=== PATIENT | male | born 1955 | race Caucasian/White ===

== ENCOUNTER 2017-02-20 16:03 | Emergency (ER) | payer OTHER ==
[~2017-02-20] VITALS: Ht 177.8 cm; Wt 83.9 kg
--- NOTE | 2017-02-20 16:55 | NUR ---
DR RAMIREZ AT THE BEDSIDE.
[2017-02-20] MEDS ORDERED: IV NORMAL SALINE 1000 ML BAG IV ONE (17:15)
[2017-02-20 17:58] LABS: CALCIUM 8.7 mg/dL (8.5-10.1); POTASSIUM 4.2 mmol/L (3.5-5.1)
[2017-02-20 17:59] LABS: BASOPHILS % (AUTO) 0.5 % (0.0-2.0); EOSINOPHILS # (AUTO) 0.1 K/uL (0.0-0.7); EOSINOPHILS % (AUTO) 0.9 % (0.0-7.0); HEMATOCRIT 49.7 % (40-50); LYMPHOCYTES # (AUTO) 2.4 K/uL (20.0-40.0); LYMPHOCYTES % (AUTO) 41.5 % (20.5-51.5); MEAN CORPUSCULAR HEMOGLOBIN 30.6 UUG (27.0-31.0); MEAN CORPUSCULAR HGB CONC 34 g/dL (32.0-37.0); MEAN CORPUSCULAR VOLUME 89.4 FL (82.0-92.0); MONOCYTES # (AUTO) 0.5 K/uL (2.0-10.0); MONOCYTES % (AUTO) 8.8 % (0.0-11.0); NEUTROPHILS # (AUTO) 2.8 K/uL (1.8-8.9); NEUTROPHILS % (AUTO) 48.3 % (38.5-71.5); PLATELET COUNT (AUTO) 140 K/UL (150-450); RED BLOOD CELL COUNT(AUTO) 5.56 MIL/UL (4.7-6.1); RED CELL DISTRIBUTION WIDTH 13.5 % (11.5-14.5); WHITE BLOOD COUNT (AUTO) 5.9 K/UL (4.0-11.2)
[2017-02-20 18:01] LABS: CREATININE 1.9 mg/dL (0.6-1.3)
[2017-02-20 18:04] LABS: ALBUMIN 3.3 g/dL (3.4-5.0); BILIRUBIN,DIRECT 0.1 mg/dL (0.0-0.2); BILIRUBIN,TOTAL 0.5 mg/dL (0.2-1.0); TOTAL PROTEIN, SERUM 7.4 g/dL (6.4-8.2)
--- NOTE | 2017-02-20 18:31 | NUR ---
IV removed. Catheter intact and site benign. Pressure and 4x4 gauze applied to site. No bleeding noted.
--- NOTE | 2017-02-20 18:35 | NUR ---
Patient discharged to home in stable conditon. Written and verbal after care instructions given. Patient verbalizes understanding of instructions.
[2017-02-20 18:36] VITALS: BP 144/90
== END 2017-02-20 18:36 | disposition home or self-care (01) ==
LOC: ER 16:06
DX: J06.9 Acute upper respiratory infection, unspecified (principal); N18.9 Chronic kidney disease, unspecified; F41.9 Anxiety disorder, unspecified; F17.200 Nicotine dependence, unspecified, uncomplicated
CPT/HCPCS: 36415; 71020; 80048; 80076; 85025; 96360; 99285; A4663; J7030

== ENCOUNTER 2018-03-16 07:53 | Emergency (ER) | payer OTHER ==
[~2018-03-16] VITALS: Ht 177.8 cm; Wt 83.9 kg
--- NOTE | 2018-03-16 08:28 | NUR ---
MD is at bedside evaluating the patient.
--- NOTE | 2018-03-16 08:43 | NUR ---
Iced water (1000ml) in a pitcher was provided for patient to drink.
[2018-03-16 08:47] LABS: BASOPHILS % (AUTO) 0.5 % (0.0-2.0); EOSINOPHILS % (AUTO) 0.5 % (0.0-7.0); HEMATOCRIT 50.9 % (36.7-47.1); HEMOGLOBIN 17.5 g/dL (12.5-16.3); LYMPHOCYTES # (AUTO) 1.8 K/uL (20.0-40.0); LYMPHOCYTES % (AUTO) 26.2 % (20.5-51.5); MEAN CORPUSCULAR HEMOGLOBIN 31.9 uug (23.8-33.4); MEAN CORPUSCULAR HGB CONC 34 g/dL (32.5-36.3); MEAN CORPUSCULAR VOLUME 92.8 fL (73.0-96.2); MONOCYTES # (AUTO) 0.5 K/uL (2.0-10.0); MONOCYTES % (AUTO) 7.4 % (0.0-11.0); NEUTROPHILS # (AUTO) 4.6 K/uL (1.8-8.9); NEUTROPHILS % (AUTO) 65.4 % (38.5-71.5); PLATELET COUNT (AUTO) 140 K/uL (152-348); RED BLOOD CELL COUNT(AUTO) 5.49 MIL/uL (4.06-5.63)
[2018-03-16 08:57] LABS: CREATININE 1.7 mg/dL (0.6-1.3); POTASSIUM 4.4 mmol/L (3.5-5.1)
[2018-03-16 09:12] LABS: BILIRUBIN,DIRECT 0.2 mg/dL (0.0-0.2); BILIRUBIN,TOTAL 0.6 mg/dL (0.2-1.0); TOTAL PROTEIN, SERUM 7.4 g/dL (6.4-8.2)
--- NOTE | 2018-03-16 09:36 | NUR ---
Patient discharged to home in stable conditon & steady gait. Written and verbal after care instructions given to patient w/ copies of all the tests results. Patient verbalizes understanding of instructions.
[2018-03-16 09:42] LABS: *BILIRUBIN,URIN NEGATIVE (NEGATIVE); *BLOOD, URINE NEGATIVE (NEGATIVE); *CLARITY,URINE CLEAR (CLEAR); *COLOR,URINE YELLOW (YELLOW); *KETONES,URINE NEGATIVE (NEGATIVE); *PROTEIN,URINE NEGATIVE (NEGATIVE); *UROBILINOGEN,URINE 0.2 E.U./dl (NORMAL); LEUKOCYTE ESTERASE ,URINE TRACE (NEGATIVE); NITRITE, URINE NEGATIVE (NEGATIVE); UGLUCOSE NEGATIVE (NEGATIVE)
[2018-03-16 09:47] LABS: BACTERIA,URINE NONE SEEN /HPF (NONE SEEN); RBC,URINE 0-3 /HPF (0-3); SQUAMOUS EPITHELIAL CELL,UR FEW /HPF (NONE SEEN); WBC,URINE 0-3 /HPF (0-3)
== END 2018-03-16 09:37 | disposition home or self-care (01) ==
LOC: ER 07:53
DX: R07.89 Other chest pain (principal); I10 Essential (primary) hypertension; E78.00 Pure hypercholesterolemia, unspecified; F17.210 Nicotine dependence, cigarettes, uncomplicated
CPT/HCPCS: 36415; 71045; 80048; 80076; 81001; 83690; 84484; 85025; 85730; 93005; 99285; A4663; 70030-TC; J7030

== ENCOUNTER 2018-10-13 15:58 | Emergency (ER) | payer OTHER ==
[~2018-10-13] VITALS: Ht 177.8 cm; Wt 83.9 kg
[2018-10-13] MEDS ORDERED: STATIN PO (16:16)
[2018-10-13] MEDS ORDERED: METO25TA6 PO (16:16)
[2018-10-13] MEDS ORDERED: OMEP40CA37 PO (16:16)
[2018-10-13] MEDS ORDERED: TAMS-3 PO (16:16)
[2018-10-13 16:36] LABS: BASOPHILS # (AUTO) 0.1 K/uL (0.0-8.0); BASOPHILS % (AUTO) 0.9 % (0.0-2.0); EOSINOPHILS % (AUTO) 0.6 % (0.0-7.0); HEMATOCRIT 48.2 % (36.7-47.1); HEMOGLOBIN 16.5 g/dL (12.5-16.3); LYMPHOCYTES # (AUTO) 2.2 K/uL (20.0-40.0); LYMPHOCYTES % (AUTO) 35.1 % (20.5-51.5); MEAN CORPUSCULAR HEMOGLOBIN 31.5 uug (23.8-33.4); MEAN CORPUSCULAR HGB CONC 34 g/dL (32.5-36.3); MEAN CORPUSCULAR VOLUME 91.8 fL (73.0-96.2); MONOCYTES # (AUTO) 0.4 K/uL (2.0-10.0); MONOCYTES % (AUTO) 7.1 % (0.0-11.0); NEUTROPHILS # (AUTO) 3.5 K/uL (1.8-8.9); NEUTROPHILS % (AUTO) 56.3 % (38.5-71.5); PLATELET COUNT (AUTO) 175 K/uL (152-348); RED BLOOD CELL COUNT(AUTO) 5.24 MIL/uL (4.06-5.63); WHITE BLOOD COUNT (AUTO) 6.3 K/uL (3.6-10.2)
[2018-10-13] MEDS ORDERED: ONDANSETRON 4 MG/2 ML VIAL ONE (16:43)
[2018-10-13] MEDS: IV NORMAL SALINE 1000 ML BAG IV ONE (16:44)
[2018-10-13] MEDS: ONDANSETRON 4 MG/2 ML VIAL IV ONE (16:45)
--- NOTE | 2018-10-13 16:47 | NUR ---
IV PLACED, ZOFRAN ADMIN, 1L 0.9NS BOLUS INFUSING, LABS DRAWN-SENT, EKG DONE. PT TO CT SCAN
--- NOTE | 2018-10-13 16:49 | NUR ---
RECORD DOCUMENTATION NOTE- I ZELDA MCMAHON RN, DOCUMENTED NOTES AND MED ADMINISTRATION UNDER LIV LYLES LVN BY MISTAKE. SAME COMPUTER.
[2018-10-13 16:50] LABS: BILIRUBIN,DIRECT 0.1 mg/dL (0.0-0.2); BILIRUBIN,TOTAL 0.5 mg/dL (0.2-1.0); CREATININE 1.9 mg/dL (0.6-1.3); POTASSIUM 4.7 mmol/L (3.5-5.1); TOTAL PROTEIN, SERUM 7.2 g/dL (6.4-8.2)
[2018-10-13 16:57] LABS: *BILIRUBIN,URIN NEGATIVE (NEGATIVE); *BLOOD, URINE NEGATIVE (NEGATIVE); *COLOR,URINE YELLOW (YELLOW); *KETONES,URINE NEGATIVE (NEGATIVE); *UROBILINOGEN,URINE 0.2 E.U./dl (NORMAL); LEUKOCYTE ESTERASE ,URINE NEGATIVE (NEGATIVE); NITRITE, URINE NEGATIVE (NEGATIVE); UGLUCOSE NEGATIVE (NEGATIVE)
[2018-10-13 17:00] LABS: *CLARITY,URINE CLEAR (CLEAR)
--- NOTE | 2018-10-13 18:05 | NUR ---
MSE COMPLETED, IV D/C'D INTACT. ACI GIVEN. PT AMBULATED W/O DIFF/TOOK ALL BELONGINGS
[2018-10-13 18:35] VITALS: BP 118/71
== END 2018-10-13 18:05 | disposition home or self-care (01) ==
LOC: ER 15:59
DX: R51 Headache (principal); R11.2 Nausea with vomiting, unspecified; R41.3 Other amnesia; E78.00 Pure hypercholesterolemia, unspecified; K21.9 Gastro-esophageal reflux disease without esophagitis; I12.9 Hypertensive chronic kidney disease with stage 1 through stage 4 chronic kidney disease, or unspecified chronic kidney disease; N18.9 Chronic kidney disease, unspecified; F17.200 Nicotine dependence, unspecified, uncomplicated; Z79.899 Other long term (current) drug therapy
CPT/HCPCS: 36415; 70450; 71045; 80048; 80076; 81001; 83690; 84484; 85025; 85730; 87086; 96361; 96374; 99284; J2405; 70030-TC; A4663; J7030

== ENCOUNTER 2018-11-14 22:01 | Emergency (ER) | payer OTHER ==
[~2018-11-14] VITALS: Ht 180.3 cm; Wt 81.6 kg
[~2018-11-14 22:01] MED LIST: METO25TA6 PO; OMEP40CA37 PO; STATIN PO; TAMS-3 PO
--- NOTE | 2018-11-14 22:30 | NUR ---
Pt ambulated in ER with stable gait with the c/o rectal pain x 1 week and worsened in the past 3 days. Pt states that he has been having diarrhea. Pt denies CP, SOB, N/V. Safe environment implemetned.
--- NOTE | 2018-11-14 22:34 | NUR ---
Dr. Morales at bedside for MSE.
[2018-11-14 23:04] LABS: POTASSIUM 4.1 mmol/L (3.5-5.1)
[2018-11-14 23:10] LABS: BILIRUBIN,DIRECT 0.1 mg/dL (0.0-0.2); BILIRUBIN,TOTAL 0.4 mg/dL (0.2-1.0); TOTAL PROTEIN, SERUM 7.8 g/dL (6.4-8.2)
[2018-11-14 23:10] LABS: BASOPHILS # (AUTO) 0.1 K/uL (0.0-8.0); BASOPHILS % (AUTO) 0.7 % (0.0-2.0); EOSINOPHILS # (AUTO) 0.1 K/uL (0.0-0.7); EOSINOPHILS % (AUTO) 1.1 % (0.0-7.0); HEMATOCRIT 49.6 % (36.7-47.1); HEMOGLOBIN 17.3 g/dL (12.5-16.3); LYMPHOCYTES # (AUTO) 3.9 K/uL (20.0-40.0); LYMPHOCYTES % (AUTO) 45.2 % (20.5-51.5); MEAN CORPUSCULAR HEMOGLOBIN 32.2 uug (23.8-33.4); MEAN CORPUSCULAR HGB CONC 35 g/dL (32.5-36.3); MEAN CORPUSCULAR VOLUME 92.3 fL (73.0-96.2); MONOCYTES # (AUTO) 0.6 K/uL (2.0-10.0); MONOCYTES % (AUTO) 6.7 % (0.0-11.0); NEUTROPHILS % (AUTO) 46.3 % (38.5-71.5); PLATELET COUNT (AUTO) 190 K/uL (152-348); RED BLOOD CELL COUNT(AUTO) 5.37 MIL/uL (4.06-5.63); WHITE BLOOD COUNT (AUTO) 8.6 K/uL (3.6-10.2)
--- NOTE | 2018-11-14 23:44 | NUR ---
Patient discharged to home in stable conditon. Written and verbal after care instructions given. Patient verbalizes understanding of instructions. Patient ambulated out of ER with stable gait.
[2018-11-14 23:45] VITALS: BP 134/84
== END 2018-11-14 23:46 | disposition home or self-care (01) ==
LOC: ER 22:03
DX: K62.5 Hemorrhage of anus and rectum (principal); N28.9 Disorder of kidney and ureter, unspecified; I10 Essential (primary) hypertension; E78.5 Hyperlipidemia, unspecified; K21.9 Gastro-esophageal reflux disease without esophagitis; F17.200 Nicotine dependence, unspecified, uncomplicated; Z79.899 Other long term (current) drug therapy
CPT/HCPCS: 36415; 85025; A4663

== ENCOUNTER 2019-03-12 19:17 | Emergency (ER) | payer OTHER ==
[~2019-03-12] VITALS: Ht 172.7 cm; Wt 81.6 kg
--- NOTE | 2019-03-12 19:37 | NUR ---
Received pt. in bed 3 A/O x4 speaks clearly in full complete sentences. 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 Also stated that his hemmoroids have been bleeding too with pain 10/10 especially while he is having a bowel movement. Awaiting to be seen by Dr. Dawson.
[2019-03-12] MEDS ORDERED: FLUOROURACIL 5% (19:40)
--- NOTE | 2019-03-12 20:15 | NUR ---
Pt. discharged with 2 RX's given to pt. by Dr. Dawson with Appointment F/U with his own primary MD, Dr. Surya Schaefer in [place] and this lyric writer called information and obtained his primary MD's phone number and wrote it on the discharge instructions for pt. to take with him. Steady gait out of the ED.
== END 2019-03-12 20:21 | disposition home or self-care (01) ==
LOC: ER 19:19
DX: L25.9 Unspecified contact dermatitis, unspecified cause (principal); K62.89 Other specified diseases of anus and rectum; B07.9 Viral wart, unspecified; I10 Essential (primary) hypertension; E78.5 Hyperlipidemia, unspecified; K21.9 Gastro-esophageal reflux disease without esophagitis; F17.200 Nicotine dependence, unspecified, uncomplicated; Z79.899 Other long term (current) drug therapy
CPT/HCPCS: A4663

== ENCOUNTER 2019-03-16 04:32 | Emergency (ER) | payer OTHER ==
[~2019-03-16] VITALS: Ht 180.3 cm; Wt 81.6 kg
[~2019-03-16 04:32] MED LIST changes: +FLUOROURACIL 5%
--- NOTE | 2019-03-16 04:53 | NUR ---
Patient comes into the ER with c/o testicular pain after spilling wart removal medication onto his testicles. he states he was given a wart removal ointment by his forensic chemist in order to treat penile warts. The patient states he spilled the medication onto his testicle and now has pain to the area. Patient AAOx4. In no acute distress. Denies any respiratory/cardiovascular concern. No /GI concern. Bed on lock position. Fall precaution per protocol.
--- NOTE | 2019-03-16 04:55 | NUR ---
SIMON MD on bedside for MSE.
[2019-03-16] MEDS ORDERED: ONDANSETRON 4 MG/2 ML VIAL IM ONE (05:00)
[2019-03-16] MEDS ORDERED: HYDROMORPHONE 1 MG/1 ML DISP.SYRIN IM ONE ×2 (05:00→06:00)
[2019-03-16] MEDS ORDERED: ONDANSETRON 4 MG/2 ML VIAL ONE (05:04)
[2019-03-16] MEDS ORDERED: HYDROMORPHONE 1 MG/1 ML DISP.SYRIN ONE ×2 (05:04→06:01)
--- NOTE | 2019-03-16 05:13 | NUR ---
ER at bedside
[2019-03-16] MEDS ORDERED: SILVER SULFADIAZINE 1% CREAM 25 GM TUBE TP ONE (05:24)
[2019-03-16] MEDS ORDERED: SILVER SULFADIAZINE 1% CREAM 50 GM TP ONE (05:30)
[2019-03-16 06:02] VITALS: BP 132/74
--- NOTE | 2019-03-16 06:03 | NUR ---
Patient discharged to home in stable conditon. Written and verbal after care instructions given. Patient verbalizes understanding of instructions. Patient ambulated from the ER with stable condition. All belongings with patient.
== END 2019-03-16 06:04 | disposition home or self-care (01) ==
LOC: ER 04:34
DX: T21.46XA Corrosion of unspecified degree of male genital region, initial encounter (principal); I10 Essential (primary) hypertension; E78.00 Pure hypercholesterolemia, unspecified; K21.9 Gastro-esophageal reflux disease without esophagitis; F17.200 Nicotine dependence, unspecified, uncomplicated; Z79.899 Other long term (current) drug therapy; Y93.89 Activity, other specified; Y92.89 Other specified places as the place of occurrence of the external cause; Y99.8 Other external cause status
CPT/HCPCS: 16000; 96372 ×3; 99284; J1170 ×2; J2405; A4663

== ENCOUNTER 2019-06-11 19:32 | Emergency (ER) | payer OTHER ==
[~2019-06-11] VITALS: Ht 177.8 cm; Wt 86.2 kg
--- NOTE | 2019-06-11 19:51 | NUR ---
Pt provided urine sample, sent to lab.
[2019-06-11 19:56] LABS: *BILIRUBIN,URIN NEGATIVE (NEGATIVE); *CLARITY,URINE CLEAR (CLEAR); *COLOR,URINE YELLOW (YELLOW); *KETONES,URINE TRACE (NEGATIVE); *UROBILINOGEN,URINE 0.2 E.U./dl (NORMAL); LEUKOCYTE ESTERASE ,URINE NEGATIVE (NEGATIVE); NITRITE, URINE NEGATIVE (NEGATIVE); UGLUCOSE NEGATIVE (NEGATIVE)
[2019-06-11 19:57] LABS: *BLOOD, URINE TRACE (NEGATIVE)
[2019-06-11 20:02] LABS: MUCUS,URINE MANY /LPF (0-FEW)
[2019-06-11] MEDS ORDERED: BUPR100T5 PO (20:08)
[2019-06-11] MEDS ORDERED: ATOR10TA PO (20:08)
--- NOTE | 2019-06-11 20:19 | NUR ---
Dr. Randhawa seen patient
[2019-06-11] MEDS ORDERED: MAGNESIUM CITRATE 296 ML BOTTLE PO ONE (20:30)
[2019-06-11] MEDS ORDERED: MAGNESIUM HYDROXIDE 30 ML LIQUID UDC PO ONE (20:30)
[2019-06-11] MEDS ORDERED: MAG HYDROX/AL HYDROX/SIMETH 30 ML LIQUID UDC ONE (20:34)
[2019-06-11] MEDS ORDERED: MAGNESIUM CITRATE 296 ML BOTTLE ONE (20:35)
--- NOTE | 2019-06-11 20:42 | NUR ---
Patient discharged to home in stable conditon. Written and verbal after care instructions given. Patient verbalizes understanding of instructions. patient ambulatory with steady gait. patient went home with personal belongings and exit care package.
[2019-06-11 20:44] VITALS: BP 112/70
== END 2019-06-11 20:46 | disposition home or self-care (01) ==
LOC: ER 19:34
DX: K59.00 Constipation, unspecified (principal); R31.9 Hematuria, unspecified; I10 Essential (primary) hypertension; E78.5 Hyperlipidemia, unspecified; F17.200 Nicotine dependence, unspecified, uncomplicated; Z79.899 Other long term (current) drug therapy
CPT/HCPCS: A4663

== ENCOUNTER 2019-06-28 05:57 | Emergency (ER) | payer OTHER ==
[~2019-06-28] VITALS: Ht 177.8 cm; Wt 86.2 kg
[~2019-06-28 05:57] MED LIST changes: +ATOR10TA PO; +BUPR100T5 PO; -FLUOROURACIL 5%; -STATIN PO
[2019-06-28] MEDS ORDERED: HYDROMORPHONE 1 MG/1 ML DISP.SYRIN IV ONE (06:30)
[2019-06-28] MEDS ORDERED: IV NORMAL SALINE 1000 ML BAG IV ONE ×2 (06:30→08:00)
[2019-06-28] MEDS ORDERED: ONDANSETRON 4 MG/2 ML VIAL IV ONE (06:30)
[2019-06-28 06:31] LABS: BASOPHILS % (AUTO) 0.3 % (0.0-2.0); EOSINOPHILS # (AUTO) 0.1 K/uL (0.0-0.7); EOSINOPHILS % (AUTO) 0.7 % (0.0-7.0); HEMATOCRIT 49.2 % (36.7-47.1); HEMOGLOBIN 16.7 g/dL (12.5-16.3); LYMPHOCYTES # (AUTO) 1.7 K/uL (20.0-40.0); LYMPHOCYTES % (AUTO) 22.5 % (20.5-51.5); MEAN CORPUSCULAR HEMOGLOBIN 31.4 uug (23.8-33.4); MEAN CORPUSCULAR HGB CONC 34 g/dL (32.5-36.3); MEAN CORPUSCULAR VOLUME 92.3 fL (73.0-96.2); MONOCYTES # (AUTO) 0.8 K/uL (2.0-10.0); MONOCYTES % (AUTO) 10.6 % (0.0-11.0); NEUTROPHILS # (AUTO) 4.9 K/uL (1.8-8.9); NEUTROPHILS % (AUTO) 65.9 % (38.5-71.5); PLATELET COUNT (AUTO) 124 K/uL (152-348); RED BLOOD CELL COUNT(AUTO) 5.33 MIL/uL (4.06-5.63); WHITE BLOOD COUNT (AUTO) 7.4 K/uL (3.6-10.2)
[2019-06-28 06:38] LABS: CREATININE 1.7 mg/dL (0.6-1.3); POTASSIUM 3.9 mmol/L (3.5-5.1)
[2019-06-28 06:44] LABS: BILIRUBIN,DIRECT 0.1 mg/dL (0.0-0.2); BILIRUBIN,TOTAL 0.6 mg/dL (0.2-1.0); TOTAL PROTEIN, SERUM 6.8 g/dL (6.4-8.2)
[2019-06-28] MEDS ORDERED: HYDROMORPHONE 1 MG/1 ML DISP.SYRIN ONE (06:45)
--- NOTE | 2019-06-28 06:45 | NUR ---
pt ed x4 recieved alert and orient. pt c/o abdominal pain and nausea . pt given zofran and diluadid . pt taken for abd ct . will continue to monitor pt.
[2019-06-28] MEDS ORDERED: ONDANSETRON 4 MG/2 ML VIAL ONE (06:46)
[2019-06-28] MEDS ORDERED: LEVOFLOXACIN 750MG/D5W 150 ML IV ONE ×2 (07:42→07:45)
[2019-06-28] MEDS ORDERED: METRONIDAZOLE 500 MG/NS 100ML 100 ML IV ONE ×2 (07:42→07:45)
--- NOTE | 2019-06-28 09:38 | NUR ---
Patient discharged to home in stable conditon. Written and verbal after care instructions given. Patient verbalizes understanding of instructions.PT WALKS IN STEADY GAIT. PT DENEIS ANY PAIN OR NAUSEA AT THIS POINT. PT NOT DRIVING PT ACCOMPANIED BY SO. NO SIGN OF DISTRESS.
[2019-06-28 09:39] VITALS: BP 101/61
== END 2019-06-28 09:40 | disposition home or self-care (01) ==
LOC: ER 06:02
DX: K52.9 Noninfective gastroenteritis and colitis, unspecified (principal); E78.00 Pure hypercholesterolemia, unspecified; I10 Essential (primary) hypertension; Z79.899 Other long term (current) drug therapy
CPT/HCPCS: 36415; 74176; 80048; 80076; 83690; 85025; 96361; 96365; 96367; 96375; 99284; J1170; J1956; J2405; J3490; A4663; J7030

== ENCOUNTER 2019-08-26 04:59 | Emergency (ER) | payer OTHER ==
[~2019-08-26] VITALS: Ht 180.3 cm; Wt 81.6 kg
[~2019-08-26 04:59] MED LIST changes: +OMEP40CA13 PO; -OMEP40CA37 PO
[2019-08-26] MEDS ORDERED: MORPHINE SULFATE 4 MG/1 ML DISP.SYRIN ONE (05:23)
[2019-08-26] MEDS ORDERED: ONDANSETRON 4 MG/2 ML VIAL ONE (05:23)
[2019-08-26 05:27] LABS: BASOPHILS % (AUTO) 0.7 % (0.0-2.0); EOSINOPHILS # (AUTO) 0.1 K/uL (0.0-0.7); EOSINOPHILS % (AUTO) 1.1 % (0.0-7.0); HEMATOCRIT 48.6 % (36.7-47.1); HEMOGLOBIN 16.6 g/dL (12.5-16.3); LYMPHOCYTES # (AUTO) 2.6 K/uL (20.0-40.0); LYMPHOCYTES % (AUTO) 40.9 % (20.5-51.5); MEAN CORPUSCULAR HEMOGLOBIN 30.9 uug (23.8-33.4); MEAN CORPUSCULAR HGB CONC 34 g/dL (32.5-36.3); MEAN CORPUSCULAR VOLUME 90.6 fL (73.0-96.2); MONOCYTES # (AUTO) 0.6 K/uL (2.0-10.0); MONOCYTES % (AUTO) 9.4 % (0.0-11.0); NEUTROPHILS % (AUTO) 47.9 % (38.5-71.5); PLATELET COUNT (AUTO) 181 K/uL (152-348); RED BLOOD CELL COUNT(AUTO) 5.37 MIL/uL (4.06-5.63); WHITE BLOOD COUNT (AUTO) 6.2 K/uL (3.6-10.2)
[2019-08-26] MEDS ORDERED: MORPHINE SULFATE 4 MG/1 ML DISP.SYRIN IV ONE (05:30)
[2019-08-26] MEDS ORDERED: ONDANSETRON 4 MG/2 ML VIAL IV ONE (05:30)
[2019-08-26] MEDS ORDERED: IV NS 1000 ML 1,000 ML IV ONE ×2 (05:30)
[2019-08-26 06:04] LABS: BILIRUBIN,DIRECT 0.1 mg/dL (0.0-0.2); BILIRUBIN,TOTAL 0.5 mg/dL (0.2-1.0); CREATININE 1.7 mg/dL (0.6-1.3); POTASSIUM 4.1 mmol/L (3.5-5.1); TOTAL PROTEIN, SERUM 7.1 g/dL (6.4-8.2)
[2019-08-26 06:39] LABS: *BILIRUBIN,URIN NEGATIVE (NEGATIVE); *BLOOD, URINE NEGATIVE (NEGATIVE); *CLARITY,URINE CLEAR (CLEAR); *COLOR,URINE YELLOW (YELLOW); *KETONES,URINE NEGATIVE (NEGATIVE); *UROBILINOGEN,URINE 0.2 E.U./dl (NORMAL); LEUKOCYTE ESTERASE ,URINE NEGATIVE (NEGATIVE); NITRITE, URINE NEGATIVE (NEGATIVE); PH,URINE 7.5 (5.0-8.0); UGLUCOSE NEGATIVE (NEGATIVE)
--- NOTE | 2019-08-26 06:46 | NUR ---
Patient discharged to home in stable conditon. Written and verbal after care instructions given. Patient verbalizes understanding of instructions. Ambulated from ER with stable gait. All belongings with patient. VSS
[2019-08-26 06:47] VITALS: BP 144/82
== END 2019-08-26 06:47 | disposition home or self-care (01) ==
LOC: ER 05:04
DX: N40.0 Benign prostatic hyperplasia without lower urinary tract symptoms (principal); N28.9 Disorder of kidney and ureter, unspecified; E78.00 Pure hypercholesterolemia, unspecified; I10 Essential (primary) hypertension; Z87.891 Personal history of nicotine dependence; Z79.899 Other long term (current) drug therapy
CPT/HCPCS: 36415; 74176; 80048; 80076; 81001; 83605; 83690; 84484; 85025; 93005; 96361; 96374; 96375; 99284; J2270; J2405; 70030-TC; A4663; J7030

== ENCOUNTER 2019-09-15 02:45 | Emergency (ER) | payer OTHER ==
[~2019-09-15] VITALS: Ht 180.3 cm; Wt 83.9 kg
[2019-09-15] MEDS ORDERED: TEST100V5 IM (02:53)
[2019-09-15] MEDS ORDERED: AZITHROMYCIN 250 MG TABLET PO ONE (03:15)
[2019-09-15] MEDS ORDERED: AZITHROMYCIN 250 MG TABLET ONE (03:19)
[2019-09-15 03:26] VITALS: BP 122/74
--- NOTE | 2019-09-15 03:26 | NUR ---
Patient discharged to home in stable conditon. Written and verbal after care instructions given. Patient verbalizes understanding of instructions.
== END 2019-09-15 03:27 | disposition home or self-care (01) ==
LOC: ER 02:48
DX: J06.9 Acute upper respiratory infection, unspecified (principal); E78.5 Hyperlipidemia, unspecified; I10 Essential (primary) hypertension; Z87.891 Personal history of nicotine dependence; Z79.899 Other long term (current) drug therapy
CPT/HCPCS: 71045; A4663; Q0144

== ENCOUNTER 2019-10-23 17:18 | Emergency (ER) | payer OTHER ==
[~2019-10-23] VITALS: Ht 172.7 cm; Wt 86.2 kg
[~2019-10-23 17:18] MED LIST changes: +TEST100V5 IM
[2019-10-23 17:55] LABS: BASOPHILS % (AUTO) 0.3 % (0.0-2.0); EOSINOPHILS % (AUTO) 0.1 % (0.0-7.0); HEMATOCRIT 49.4 % (36.7-47.1); HEMOGLOBIN 16.8 g/dL (12.5-16.3); LYMPHOCYTES # (AUTO) 1.7 K/uL (20.0-40.0); LYMPHOCYTES % (AUTO) 19.1 % (20.5-51.5); MEAN CORPUSCULAR HEMOGLOBIN 30.9 uug (23.8-33.4); MEAN CORPUSCULAR HGB CONC 34 g/dL (32.5-36.3); MEAN CORPUSCULAR VOLUME 90.8 fL (73.0-96.2); MONOCYTES # (AUTO) 0.6 K/uL (2.0-10.0); MONOCYTES % (AUTO) 6.5 % (0.0-11.0); NEUTROPHILS # (AUTO) 6.4 K/uL (1.8-8.9); PLATELET COUNT (AUTO) 167 K/uL (152-348); RED BLOOD CELL COUNT(AUTO) 5.45 MIL/uL (4.06-5.63); WHITE BLOOD COUNT (AUTO) 8.7 K/uL (3.6-10.2)
[2019-10-23 17:59] LABS: CREATININE 1.6 mg/dL (0.6-1.3); POTASSIUM 4.5 mmol/L (3.5-5.1)
[2019-10-23 18:05] LABS: BILIRUBIN,DIRECT 0.2 mg/dL (0.0-0.2); BILIRUBIN,TOTAL 0.5 mg/dL (0.2-1.0); TOTAL PROTEIN, SERUM 7.5 g/dL (6.4-8.2)
--- NOTE | 2019-10-23 18:48 | NUR ---
Patient discharged to home in stable conditon. Written and verbal after care instructions given. Patient verbalizes understanding of instructions.pt walks in steady gait. pt says feels better, ready to go home.
[2019-10-23 18:49] VITALS: BP 131/81
== END 2019-10-23 18:50 | disposition home or self-care (01) ==
LOC: ER 17:18
DX: R42 Dizziness and giddiness (principal); E78.00 Pure hypercholesterolemia, unspecified; I10 Essential (primary) hypertension; Z87.891 Personal history of nicotine dependence; Z79.899 Other long term (current) drug therapy
CPT/HCPCS: 36415; 70030-TC; 71045; 85025; 93005; A4663

== ENCOUNTER 2020-03-05 05:21 | Emergency (ER) | payer MEDICAID, OTHER ==
[~2020-03-05] VITALS: Ht 175.3 cm; Wt 82.6 kg
--- NOTE | 2020-03-05 05:26 | NUR ---
Dr. Fraser at bedside for MSE
[2020-03-05] MEDS ORDERED: ONDANSETRON 4 MG/2 ML VIAL IV ONE (05:30)
[2020-03-05] MEDS ORDERED: IV NORMAL SALINE 1000 ML BAG IV ONE (05:30)
[2020-03-05] MEDS ORDERED: KETOROLAC TROMETHAMINE 15 MG INJ IVP ONE (05:30)
--- NOTE | 2020-03-05 05:30 | NUR ---
Patient ambulating with steady gait. A&O x4. c/o ABD pain x5 days 04/29 on the pain scale. Pain does not radiate per patient. Denies any N / V / D. Patient states that pain is aggrevated when coughing. Speech is clear and able to make needs known / follow commands. Breathing even and unlabored. no cough noted, denies any SOB. Denies any / GI distress.
[2020-03-05] MEDS ORDERED: ONDANSETRON 4 MG/2 ML VIAL ONE (05:31)
[2020-03-05] MEDS ORDERED: KETOROLAC TROMETHAMINE 15 MG INJ ONE (05:31)
[2020-03-05] MEDS ORDERED: LIDOCAINE VISCUS 2% 15 ML UDC MM ONE (06:00)
[2020-03-05] MEDS ORDERED: MAG HYDROX/AL HYDROX/SIMETH 30 ML LIQUID UDC PO ONE (06:00)
[2020-03-05] MEDS ORDERED: FAMOTIDINE. 20 MG/2 ML VIAL IV ONE (06:00)
--- NOTE | 2020-03-05 06:06 | NUR ---
Spoke with Roe from Radiology he stated that [email or web address] was paged around [phone]
[2020-03-05 06:12] LABS: BASOPHILS % (AUTO) 0.4 % (0.0-2.0); EOSINOPHILS % (AUTO) 0.5 % (0.0-7.0); HEMOGLOBIN 15.4 g/dL (12.5-16.3); LYMPHOCYTES # (AUTO) 2.2 K/uL (20.0-40.0); LYMPHOCYTES % (AUTO) 26.7 % (20.5-51.5); MEAN CORPUSCULAR HEMOGLOBIN 31.2 uug (23.8-33.4); MEAN CORPUSCULAR HGB CONC 34 g/dL (32.5-36.3); MEAN CORPUSCULAR VOLUME 91.6 fL (73.0-96.2); MONOCYTES # (AUTO) 0.9 K/uL (2.0-10.0); NEUTROPHILS # (AUTO) 5.1 K/uL (1.8-8.9); NEUTROPHILS % (AUTO) 61.4 % (38.5-71.5); PLATELET COUNT (AUTO) 156 K/uL (152-348); RED BLOOD CELL COUNT(AUTO) 4.92 MIL/uL (4.06-5.63); WHITE BLOOD COUNT (AUTO) 8.4 K/uL (3.6-10.2)
[2020-03-05 06:30] LABS: CARBON DIOXIDE 26 mmol/L (21-32); CHLORIDE 102 mmol/L (98-107); CREATININE 1.5 mg/dL (0.6-1.3); GLUCOSE 105 mg/dL (74-106); POTASSIUM 5.5 mmol/L (3.5-5.1); UREA NITROGEN, BLOOD 20 mg/dL (7-18)
[2020-03-05 06:37] LABS: *BILIRUBIN,URIN NEGATIVE (NEGATIVE); *CLARITY,URINE CLEAR (CLEAR); *COLOR,URINE YELLOW (YELLOW); *KETONES,URINE NEGATIVE (NEGATIVE); *UROBILINOGEN,URINE 0.2 E.U./dl (NORMAL); LEUKOCYTE ESTERASE ,URINE NEGATIVE (NEGATIVE); NITRITE, URINE NEGATIVE (NEGATIVE); UGLUCOSE NEGATIVE (NEGATIVE)
[2020-03-05 06:37] LABS: ALANINE AMINOTRANSFERASE 21 U/L (16-63); ALKALINE PHOSPHATASE 47 U/L (50-136); ASPARTATE AMINOTRANSFERASE 36 U/L (15-37); BILIRUBIN,DIRECT < 0.1 mg/dL (0.0-0.2); BILIRUBIN,TOTAL 0.6 mg/dL (0.2-1.0); LIPASE 143 U/L (73-393); TOTAL PROTEIN, SERUM 7.8 g/dL (6.4-8.2)
--- NOTE | 2020-03-05 06:42 | NUR ---
US at bedside
[2020-03-05 06:49] LABS: *BLOOD, URINE TRACE (NEGATIVE)
[2020-03-05 06:51] LABS: BACTERIA,URINE NONE SEEN /HPF (NONE SEEN); SQUAMOUS EPITHELIAL CELL,UR NONE SEEN /HPF (NONE SEEN); WBC,URINE 0-3 /HPF (0-3)
[2020-03-05 08:02] LABS: CREATININE 1.7 mg/dL (0.6-1.3); POTASSIUM 4.5 mmol/L (3.5-5.1)
--- NOTE | 2020-03-05 08:24 | NUR ---
Patient discharged to home in stable condition. Written and verbal after care instructions given. Patient verbalizes understanding of instructions.pt walks in steady gait. pt says feels better. Stressed follow up or return to ER for worsening s/s.
[2020-03-05 08:25] VITALS: BP 121/71
== END 2020-03-05 08:26 | disposition home or self-care (01) ==
LOC: ER 05:24
DX: R10.11 Right upper quadrant pain (principal); R31.9 Hematuria, unspecified; N28.9 Disorder of kidney and ureter, unspecified; E78.5 Hyperlipidemia, unspecified; E78.00 Pure hypercholesterolemia, unspecified; I10 Essential (primary) hypertension; Z87.891 Personal history of nicotine dependence; N40.0 Benign prostatic hyperplasia without lower urinary tract symptoms; Z79.899 Other long term (current) drug therapy
CPT/HCPCS: 36415; 76705; 80048 ×2; 80076; 81001; 83690; 85025; 96361; 96374; 96375; 99284; J1885; J3490; J2405; J7030

== ENCOUNTER 2020-03-12 16:34 | Emergency (ER) | payer OTHER ==
[~2020-03-12] VITALS: Ht 177.8 cm; Wt 81.6 kg
--- NOTE | 2020-03-12 16:55 | NUR ---
PATIENT WAS MSE BY DR COTE IN ROOM 05A.
[2020-03-12] MEDS ORDERED: IV NORMAL SALINE 1000 ML BAG IV ONE (17:15)
[2020-03-12] MEDS ORDERED: KETOROLAC TROMETHAMINE 30 MG INJ IVP ONE (17:15)
[2020-03-12] MEDS ORDERED: ONDANSETRON 4 MG/2 ML VIAL IV ONE (17:15)
[2020-03-12] MEDS ORDERED: FENTANYL CITRATE 100 MCG/2 ML AMPUL IV ONE (17:15)
[2020-03-12 17:20] LABS: BASOPHILS % (AUTO) 0.8 % (0.0-2.0); EOSINOPHILS # (AUTO) 0.1 K/uL (0.0-0.7); EOSINOPHILS % (AUTO) 1.1 % (0.0-7.0); HEMATOCRIT 47.9 % (36.7-47.1); HEMOGLOBIN 16.2 g/dL (12.5-16.3); LYMPHOCYTES # (AUTO) 2.1 K/uL (20.0-40.0); LYMPHOCYTES % (AUTO) 38.4 % (20.5-51.5); MEAN CORPUSCULAR HEMOGLOBIN 30.6 uug (23.8-33.4); MEAN CORPUSCULAR HGB CONC 34 g/dL (32.5-36.3); MEAN CORPUSCULAR VOLUME 90.7 fL (73.0-96.2); MONOCYTES # (AUTO) 0.4 K/uL (2.0-10.0); MONOCYTES % (AUTO) 6.9 % (0.0-11.0); NEUTROPHILS % (AUTO) 52.8 % (38.5-71.5); PLATELET COUNT (AUTO) 204 K/uL (152-348); RED BLOOD CELL COUNT(AUTO) 5.28 MIL/uL (4.06-5.63); WHITE BLOOD COUNT (AUTO) 5.6 K/uL (3.6-10.2)
[2020-03-12] MEDS ORDERED: ONDANSETRON 4 MG/2 ML VIAL ONE (17:32)
[2020-03-12] MEDS ORDERED: KETOROLAC TROMETHAMINE 30 MG INJ ONE (17:32)
[2020-03-12] MEDS ORDERED: FENTANYL CITRATE 100 MCG/2 ML AMPUL ONE (17:32)
[2020-03-12 17:33] LABS: BILIRUBIN,DIRECT 0.1 mg/dL (0.0-0.2); BILIRUBIN,TOTAL 0.3 mg/dL (0.2-1.0); CREATININE 1.6 mg/dL (0.6-1.3); POTASSIUM 4.5 mmol/L (3.5-5.1); TOTAL PROTEIN, SERUM 6.9 g/dL (6.4-8.2)
[2020-03-12 18:55] LABS: *BILIRUBIN,URIN NEGATIVE (NEGATIVE); *BLOOD, URINE NEGATIVE (NEGATIVE); *CLARITY,URINE CLEAR (CLEAR); *COLOR,URINE YELLOW (YELLOW); *KETONES,URINE NEGATIVE (NEGATIVE); *UROBILINOGEN,URINE 0.2 E.U./dl (NORMAL); LEUKOCYTE ESTERASE ,URINE TRACE (NEGATIVE); NITRITE, URINE NEGATIVE (NEGATIVE); PH,URINE 7.5 (5.0-8.0); UGLUCOSE NEGATIVE (NEGATIVE)
[2020-03-12 19:03] LABS: BACTERIA,URINE NONE SEEN /HPF (NONE SEEN); RBC,URINE 0-3 /HPF (0-3); SQUAMOUS EPITHELIAL CELL,UR FEW /HPF (NONE SEEN)
[2020-03-12 20:19] VITALS: BP 149/82
--- NOTE | 2020-03-12 20:22 | NUR ---
Patient discharged to home in stable condition. Written and verbal after care instructions given. Patient verbalizes understanding of instructions. Stressed follow up or return to ER for worsening s/s.
== END 2020-03-12 20:15 | disposition home or self-care (01) ==
LOC: ER 16:36
DX: R10.11 Right upper quadrant pain (principal); R10.13 Epigastric pain; N20.0 Calculus of kidney; Z87.891 Personal history of nicotine dependence; E78.00 Pure hypercholesterolemia, unspecified; I10 Essential (primary) hypertension; N28.9 Disorder of kidney and ureter, unspecified
CPT/HCPCS: 36415; 76705; 80048; 80076; 81001; 83690; 85025; 93005; 96361; 96374; 96375; 99285; J1885; J2405; J3010; A4663; J7030

== ENCOUNTER 2021-01-04 01:38 | Emergency (ER) | payer OTHER ==
[~2021-01-04] VITALS: Ht 177.8 cm; Wt 90.7 kg
[2021-01-04] MEDS ORDERED: PROCHLORPERAZINE EDISYLATE 10 MG/2 ML VIAL IV ONE (02:15)
[2021-01-04] MEDS ORDERED: HYDROMORPHONE 1 MG/1 ML DISP.SYRIN IV ONE (02:15)
[2021-01-04] MEDS ORDERED: IV NS 1000 ML 1,000 ML IV ONE (02:15)
--- NOTE | 2021-01-04 02:20 | NUR ---
Pt ambulatory, A&Ox4, well built body, Heart rate & respiration regular, skin w/d/i, c/o mid & RUQ abd pain. IV access established, blood sample drawn & sent. Comfort & safety placed in patient.
[2021-01-04 02:24] LABS: BASOPHILS % (AUTO) 0.7 % (0.0-2.0); EOSINOPHILS # (AUTO) 0.1 K/uL (0.0-0.7); EOSINOPHILS % (AUTO) 0.9 % (0.0-7.0); HEMATOCRIT 43.2 % (36.7-47.1); HEMOGLOBIN 14.8 g/dL (12.5-16.3); LYMPHOCYTES # (AUTO) 2.6 K/uL (20.0-40.0); LYMPHOCYTES % (AUTO) 37.6 % (20.5-51.5); MEAN CORPUSCULAR HEMOGLOBIN 31.9 uug (23.8-33.4); MEAN CORPUSCULAR HGB CONC 34 g/dL (32.5-36.3); MONOCYTES # (AUTO) 0.6 K/uL (2.0-10.0); MONOCYTES % (AUTO) 8.2 % (0.0-11.0); NEUTROPHILS # (AUTO) 3.6 K/uL (1.8-8.9); NEUTROPHILS % (AUTO) 52.6 % (38.5-71.5); PLATELET COUNT (AUTO) 200 K/uL (152-348); RED BLOOD CELL COUNT(AUTO) 4.65 MIL/uL (4.06-5.63); WHITE BLOOD COUNT (AUTO) 6.8 K/uL (3.6-10.2)
[2021-01-04] MEDS ORDERED: HYDROMORPHONE 1 MG/1 ML DISP.SYRIN ONE (02:30)
[2021-01-04] MEDS ORDERED: PROCHLORPERAZINE EDISYLATE 10 MG/2 ML VIAL ONE (02:30)
[2021-01-04 02:46] LABS: CREATININE 1.9 mg/dL (0.6-1.3); POTASSIUM 4.1 mmol/L (3.5-5.1)
--- NOTE | 2021-01-04 02:48 | NUR ---
Pt reports less pain due to medication given in the ED.
[2021-01-04 02:51] LABS: BILIRUBIN,TOTAL 0.2 mg/dL (0.2-1.0); TOTAL PROTEIN, SERUM 7.1 g/dL (6.4-8.2)
[2021-01-04 02:56] LABS: *BILIRUBIN,URIN NEGATIVE (NEGATIVE); *CLARITY,URINE CLEAR (CLEAR); *COLOR,URINE YELLOW (YELLOW); *KETONES,URINE NEGATIVE (NEGATIVE); *UROBILINOGEN,URINE 0.2 E.U./dl (NORMAL); LEUKOCYTE ESTERASE ,URINE NEGATIVE (NEGATIVE); NITRITE, URINE NEGATIVE (NEGATIVE); UGLUCOSE NEGATIVE (NEGATIVE)
[2021-01-04 03:01] LABS: *BLOOD, URINE NEGATIVE (NEGATIVE)
[2021-01-04] MEDS ORDERED: PROC-11 PO (04:12)
[2021-01-04] MEDS ORDERED: OXYC-117 PO (04:13)
--- NOTE | 2021-01-04 04:45 | NUR ---
Pt reports feeling "little better now," ready to go home. Pt stable gait, discharge instruction given by ETHAN Quiros.
[2021-01-04 04:47] VITALS: BP 125/77
== END 2021-01-04 04:49 | disposition home or self-care (01) ==
LOC: ER 01:42
DX: R10.11 Right upper quadrant pain (principal); R11.0 Nausea; Z87.891 Personal history of nicotine dependence; K21.9 Gastro-esophageal reflux disease without esophagitis; E78.00 Pure hypercholesterolemia, unspecified; I10 Essential (primary) hypertension; Z79.899 Other long term (current) drug therapy; K80.20 Calculus of gallbladder without cholecystitis without obstruction
CPT/HCPCS: 36415; 74176; 76705; 80053; 81003; 83690; 85025; 96361; 96374; 96375; 99285; J0780; J1170; A4663; J7030

== ENCOUNTER 2021-06-23 07:19 | Emergency (ER) | payer MEDICARE, OTHER ==
[~2021-06-23 07:19] MED LIST changes: -OMEP40CA13 PO; +OMEP40CA21 PO; +PROC-11 PO
--- NOTE | 2021-06-23 07:27 | NUR ---
PT WAS CALLED IN TO ER FOR TRIAGE, BUT PT STATED HE DOES NOT WANT TO BE SEEN BY ER MD AND LEFT WITHOUT BEEN TRIAGED.
[2021-07-07] MEDS ORDERED: METH4TAB3 PO (10:08)
== END 2021-06-23 07:29 | disposition left against medical advice (07) ==
LOC: ER 07:19
DX: Z53.21 Procedure and treatment not carried out due to patient leaving prior to being seen by health care provider (principal)
CPT/HCPCS: J7030

== ENCOUNTER 2021-07-04 14:56 | Inpatient (IN) | payer MEDICARE, OTHER ==
[~2021-07-04] VITALS: Ht 180.3 cm; Wt 82.6 kg
[2021-07-04] MEDS ORDERED: VERA240C2 PO (15:37)
[2021-07-04] MEDS ORDERED: FENOFIBRATE PO (15:37)
--- NOTE | 2021-07-04 16:00 | NUR ---
RA O2 91%. PLACED PT ON O2 4 LITRE VIA NC, IMPROVED THE OXYGENEATION TO 98%. Addendum: 07/04/21 at 1727 by AIME PT BREATHING WITHOUT DIFFICULTY.
[2021-07-04 16:16] LABS: ABG BASE EXCESS 1.8 mmol/L; ABG HCO3 24.8 mmol/L; ABG PCO2 34.5 mmHg (35.0-45.0); ABG PH 7.475 (7.350-7.450); ABG PO2 79.8 mmHg (75.0-100.0); ABG SITE LEFT BRACHIAL; ABG TOTAL HEMOGLOBIN 15.6 G/dL (13.5-18.0); MetHb 0.3 % (0.0-1.5); O2Hb 95.4 % (94.0-97.0); VENT MODE room air
[2021-07-04 16:28] LABS: HEMATOCRIT 44.4 % (36.7-47.1); MEAN CORPUSCULAR HEMOGLOBIN 31.6 uug (23.8-33.4); MEAN CORPUSCULAR VOLUME 92.6 fL (73.0-96.2); PLATELET COUNT (AUTO) 109 K/uL (152-348)
[2021-07-04 16:34] LABS: CREATININE 1.8 mg/dL (0.6-1.3); POTASSIUM 4.3 mmol/L (3.5-5.1)
[2021-07-04] MEDS ORDERED: CEFTRIAXONE 1 G in IV DEXTROSE 5% 50 ML IV ONE (16:45)
[2021-07-04] MEDS ORDERED: AZITHROMYCIN IV 500 MG in IV DEXTROSE 5% 250 ML IV ONE (16:45)
[2021-07-04] MEDS ORDERED: DEXAMETHASONE SOD PHOSPHATE 4 MG INJ IV ONE (16:45)
[2021-07-04 16:49] LABS: BILIRUBIN,TOTAL 0.5 mg/dL (0.2-1.0); TOTAL PROTEIN, SERUM 6.9 g/dL (6.4-8.2)
[2021-07-04] MEDS ORDERED: CEFTRIAXONE /D5W 50ML IVPB **ER PYXIS IV ONE (16:58)
[2021-07-04] MEDS ORDERED: DEXAMETHASONE SOD PHOSPHATE 10 MG INJ ONE (16:58)
[2021-07-04] MEDS ORDERED: AZITHROMYCIN 500MG/ D5W 250ML IVPB **ER PYXIS ONLY IV ONE (16:58)
--- NOTE | 2021-07-04 17:00 | NUR ---
APPLLE JUICE PROVIDED FOR PT.
[2021-07-04] MEDS ORDERED: ENOXAPARIN SODIUM 40 MG/0.4 ML DISP.SYRIN SQ ONE ×2 (17:26→17:30)
--- NOTE | 2021-07-04 17:26 | NUR ---
DR. TIMMONS ACCEPTED THE PT.
--- NOTE | 2021-07-04 17:30 | NUR ---
HOLLY DIAZ PROVIDED FOR PT.
[2021-07-04] MEDS ORDERED: ONDANSETRON 4 MG/2 ML VIAL IV PRN (18:30)
[2021-07-04] MEDS ORDERED: MAGNESIUM HYDROXIDE 30 ML LIQUID UDC PO PRN (18:30)
[2021-07-04] MEDS ORDERED: Z GUARD REMEDY PASTE 57 GM TUBE TOP PRN (18:30)
[2021-07-04] MEDS ORDERED: ACETAMINOPHEN 325 MG TABLET PO PRN (18:30)
[2021-07-04 18:59] VITALS: BP 143/69
--- NOTE | 2021-07-04 19:00 | NUR ---
PATIENT ALERT ORIENTED, NO SOB NO CHEST PAIN, TELE MONITOR SINUS RHYTHM. PATIENT HAS NO COMPLAIN OF PAIN, HOB ELEVATED ON OXYGEN 4LPM SAT WNL. PATIENT HAS ON AND OFF DRY COUGH, PATIENT ON DROPLET PRECAUTION FOR COVID PNA. AFEBRILE, NO DIARRHEA, CONT TO MONITOR.
[2021-07-04] MEDS ORDERED: BUPR300T52 PO (19:02)
[2021-07-04] MEDS ORDERED: METO-357 PO (19:20)
[2021-07-04] MEDS ORDERED: TEST200V3 IM (19:24)
[2021-07-04 20:15] VITALS: BP 135/72
[2021-07-04] MEDS: ATORVASTATIN 10 MG TABLET PO SCH (20:52)
[2021-07-04] MEDS: METOPROLOL SUCCINATE XL 50 MG TAB.SR.24H PO SCH (20:52)
[2021-07-04] MEDS: IV NS 1000 ML 1,000 ML IV PRN (21:38)
[2021-07-05 00:02] VITALS: BP 132/85
[2021-07-05] MEDS: HYDROCODONE/APAP 5-325MG TABLET PO PRN ×2 (03:08→20:48)
[2021-07-05 04:15] VITALS: BP 138/87
[2021-07-05] MEDS: PANTOPRAZOLE SODIUM 40 MG TABLET.DR PO SCH (06:08)
[2021-07-05] MEDS: METOPROLOL SUCCINATE XL 50 MG TAB.SR.24H PO SCH ×2 (06:08→18:15)
--- NOTE | 2021-07-05 06:38 | NUR ---
PATIENT SLEEP INTERMITTENTLY, GIVEN PAIN MEDS FOR GEN AND NECK PAIN, WITH EFFECTIVE RESULTS, WITH DRY COUGH, NO SOB NO CHEST PAIN, IV SITE WAS CHANGED DUE TO DISLODGEMENT, PATIENT HAD HAIRY HANDS AND ARMS, SHAVE LEFT HAND/ARMS SO THAT IV LINE CAN BE STARTED, SKIN INTACT. CONT TO MONITOR.
[2021-07-05] MEDS: TAMSULOSIN HCL 0.4 MG CAP.SR.24H PO SCH (08:06)
[2021-07-05] MEDS: buPROPion XL 150 MG TAB.SR.24H PO SCH (08:06)
[2021-07-05] MEDS: VERAPAMIL 80 MG TABLET PO SCH (08:07)
[2021-07-05] MEDS: ENOXAPARIN SODIUM 40 MG/0.4 ML DISP.SYRIN SQ SCH (08:07)
[2021-07-05] MEDS: DEXAMETHASONE SOD PHOSPHATE 10 MG INJ IV SCH (08:12)
[2021-07-05] MEDS ORDERED: Medication Not On Formulary EA (Omeprazole 1 CAP) PO SCH (09:00)
[2021-07-05] MEDS ORDERED: VERAPAMIL HCL 120 MG PO SCH (09:00)
[2021-07-05] MEDS ORDERED: METOPROLOL TARTRATE 25 MG TABLET PO SCH (09:00)
[2021-07-05] MEDS ORDERED: buPROPion SR 100 MG TABLET.SA PO SCH (09:00)
[2021-07-05 09:33] LABS: HEMATOCRIT 45.3 % (36.7-47.1); MEAN CORPUSCULAR HEMOGLOBIN 31.8 uug (23.8-33.4); MEAN CORPUSCULAR VOLUME 93.8 fL (73.0-96.2); PLATELET COUNT (AUTO) 108 K/uL (152-348)
[2021-07-05 09:54] LABS: BILIRUBIN,DIRECT 0.1 mg/dL (0.0-0.2); BILIRUBIN,TOTAL 0.3 mg/dL (0.2-1.0); CREATININE 1.5 mg/dL (0.6-1.3); MAGNESIUM 2.4 mg/dL (1.8-2.4); PHOSPHOROUS 2.7 mg/dL (2.5-4.9); POTASSIUM 4.5 mmol/L (3.5-5.1); TOTAL PROTEIN, SERUM 6.7 g/dL (6.4-8.2)
[2021-07-05] MEDS: IV NS 1000 ML 1,000 ML IV PRN (11:07)
[2021-07-05 12:00] VITALS: BP 123/69
[2021-07-05 16:00] VITALS: BP 127/54
[2021-07-05] MEDS: CEFTRIAXONE 1 G in IV DEXTROSE 5% 50 ML IV SCH (17:04)
[2021-07-05 20:10] VITALS: BP 114/59
[2021-07-05] MEDS ORDERED: LORAZEPAM 0.5 MG TABLET PO PRN (20:30)
[2021-07-05] MEDS: ATORVASTATIN 10 MG TABLET PO SCH (20:48)
--- NOTE | 2021-07-05 21:32 | NUR ---
Awake alert and oriented x4 On continous IVF's infusing well @ 75cc/hr. Needs attended. All due meds given. complained of pain , [place] 1 tab given as ordered. Will monitor patient. Patient also feels anxious, want some anxiety medicine. SUGAR GRINDER Guilherme navarro, Ativan 0.5 mg given as ordered. VSS Afebrile. No acute distress noted.
[2021-07-06 00:05] VITALS: BP 125/48
[2021-07-06 04:10] VITALS: BP 121/79
[2021-07-06] MEDS: PANTOPRAZOLE SODIUM 40 MG TABLET.DR PO SCH (06:15)
[2021-07-06] MEDS: METOPROLOL SUCCINATE XL 50 MG TAB.SR.24H PO SCH ×2 (06:16→18:16)
--- NOTE | 2021-07-06 06:34 | NUR ---
Quiet night. Slept well most of the shift. Needs attended. IVF's infusing well. Voiding well.
[2021-07-06] MEDS ORDERED: GUAIFENESIN/DEXTROMETHORPHAN 5 ML UDC PO PRN (07:45)
[2021-07-06] MEDS: buPROPion XL 150 MG TAB.SR.24H PO SCH (08:18)
[2021-07-06] MEDS: TAMSULOSIN HCL 0.4 MG CAP.SR.24H PO SCH (08:18)
[2021-07-06] MEDS: VERAPAMIL 80 MG TABLET PO SCH (08:21)
[2021-07-06] MEDS: ENOXAPARIN SODIUM 40 MG/0.4 ML DISP.SYRIN SQ SCH (08:36)
[2021-07-06] MEDS: DEXAMETHASONE SOD PHOSPHATE 10 MG INJ IV SCH (08:50)
[2021-07-06] MEDS: HYDROCODONE/APAP 5-325MG TABLET PO PRN (10:32)
[2021-07-06 12:00] VITALS: BP 104/60
[2021-07-06] MEDS: IV NS 1000 ML 1,000 ML IV PRN (13:44)
[2021-07-06 16:00] VITALS: BP 119/64
[2021-07-06] MEDS: CEFTRIAXONE 1 G in IV DEXTROSE 5% 50 ML IV SCH (17:17)
[2021-07-06] MEDS: ATORVASTATIN 10 MG TABLET PO SCH (20:08)
[2021-07-06 20:15] VITALS: BP 123/53
[2021-07-06] MEDS: HYDROMORPHONE 1 MG/1 ML DISP.SYRIN IV PRN (20:46)
--- NOTE | 2021-07-06 21:05 | NUR ---
Received pt resting in bed. AAO x4. On RA, no acute distress noted. C/o 05/30 pain. Pt has Freedom but pt refused to take it as it doesn't work on him. As per pt, Dr. Mazariegos is aware of this. Notified Dr. Mazariegos with new order for Dilaudid 1 mg IV Q4H PRN. Carried out order. Due med given as ordered. Safety measures maintained. Call light and personal items within reach. Will continue to monitor.
[2021-07-07] VITALS: BP 134/59
[2021-07-07] MEDS: HYDROMORPHONE 1 MG/1 ML DISP.SYRIN IV PRN (00:55)
[2021-07-07] MEDS: IV NS 1000 ML 1,000 ML IV PRN (03:23)
[2021-07-07 04:15] VITALS: BP 113/75
--- NOTE | 2021-07-07 04:54 | NUR ---
Pt slept comfortably. Medicated x2 for pain as needed and as ordered. No SOB, CP. No changes this shift. Will endorse accordingly.
[2021-07-07] MEDS: PANTOPRAZOLE SODIUM 40 MG TABLET.DR PO SCH (06:18)
[2021-07-07] MEDS: METOPROLOL SUCCINATE XL 50 MG TAB.SR.24H PO SCH (06:19)
--- NOTE | 2021-07-07 08:30 | NUR ---
PT IN BED RESTING ON ROOM AIR, NO SIGNS OF DISTRESS, NO REPORTS OF PAIN. PT SATURATING AT 97%, AMBULATORY, STEADY GAIT. PT HAS A LEFT HAND 22G INFUSING NS AT 75CC/HR. PT IS A FEBRILE, HAS UNPRODUCTIVE COUGH. BED LOW AND LOCKED, CALL LIGHT WITHIN REACH, WILL CONTINUE WITH PLAN OF CARE.
[2021-07-07] MEDS ORDERED: METH4TAB3 PO (10:08)
[2021-07-07] MEDS: DEXAMETHASONE SOD PHOSPHATE 10 MG INJ IV SCH (10:11)
[2021-07-07] MEDS: TAMSULOSIN HCL 0.4 MG CAP.SR.24H PO SCH (10:11)
[2021-07-07] MEDS: buPROPion XL 150 MG TAB.SR.24H PO SCH (10:11)
[2021-07-07] MEDS: ENOXAPARIN SODIUM 40 MG/0.4 ML DISP.SYRIN SQ SCH (10:12)
[2021-07-07] MEDS: VERAPAMIL 80 MG TABLET PO SCH (10:33)
[2021-07-07 11:55] VITALS: BP 118/64
--- NOTE | 2021-07-07 13:40 | NUR ---
PT DISCHARGED HOME WITH ALL BELONGINGS, PICKED UP BY GIRLFRIEND. PT AMBULATORY, VITALS WNL, NO SIGNS OF RESPIRATORY DISTRESS, NO PAIN, NO FEVER. PT DC'D WITH ALL BELONGINGS IN HAND, MEDICATION SENT TO PHARMACY, DISCHARGE INSTRUCTIONS GIVEN TO PT, WELL FOLLOW UP INSTRUCTIONS.
== END 2021-07-07 13:40 | disposition home or self-care (01) | DRG 177 ==
LOC: ER 14:56 → TELE3 18:27
PROVIDERS: ADMIT Internal Medicine; ATTEND Internal Medicine
DX: U07.1 COVID-19 (principal); N17.0 Acute kidney failure with tubular necrosis; D68.59 Other primary thrombophilia; E87.1 Hypo-osmolality and hyponatremia; E78.5 Hyperlipidemia, unspecified; E86.1 Hypovolemia; N40.0 Benign prostatic hyperplasia without lower urinary tract symptoms; Z87.891 Personal history of nicotine dependence; I10 Essential (primary) hypertension; R53.81 Other malaise; R19.7 Diarrhea, unspecified
CPT/HCPCS: 36415; 36600; 70030-TC; 71045; 83605; 83615; 83735; 84100; 85025; 85730; 86140; 87040; 87400; 93005; A4663; G0378; J0456; J0696; J1100; J1170; J1650; J7030; J7060; U0003

== ENCOUNTER 2022-12-30 09:16 | Inpatient (IN) | payer MEDICARE, BC ==
[~2022-12-30] VITALS: Ht 180.3 cm; Wt 82.6 kg
[~2022-12-30 09:16] MED LIST changes: -BUPR100T5 PO; +BUPR300T52 PO; +FENOFIBRATE PO; +METH4TAB3 PO; +METO-357 PO; -METO25TA6 PO; -PROC-11 PO; -TEST100V5 IM; +TEST200V3 IM; +VERA240C2 PO
[2022-12-30] MEDS ORDERED: IV NORMAL SALINE 1000 ML BAG IV ONE ×2 (09:45)
[2022-12-30] MEDS ORDERED: KETOROLAC TROMETHAMINE 15 MG INJ IVP ONE (09:45)
[2022-12-30 09:54] LABS: HEMATOCRIT 42.5 % (36.7-47.1); MEAN CORPUSCULAR HEMOGLOBIN 30.4 uug (23.8-33.4); MEAN CORPUSCULAR VOLUME 90.4 fL (73.0-96.2); PLATELET COUNT (AUTO) 163 K/uL (152-348)
[2022-12-30 10:14] LABS: BILIRUBIN,TOTAL 0.3 mg/dL (0.2-1.0); CREATININE 1.5 mg/dL (0.6-1.3); POTASSIUM 4.3 mmol/L (3.5-5.1); TOTAL PROTEIN, SERUM 7.4 g/dL (6.4-8.2)
[2022-12-30] MEDS ORDERED: ACETAMINOPHEN 325 MG TABLET PO ONE (10:15)
[2022-12-30] MEDS ORDERED: LORAZEPAM 0.5 MG TABLET PO ONE (10:15)
--- NOTE | 2022-12-30 10:15 | NUR ---
Pt. received from triage nurse. Placed to room 5a. Pt. changed to gown to faciltate visual of right groin and right leg. Inital assessment complete. Dr. Aviles in for eval. Pt. very anxious.
[2022-12-30] MEDS ORDERED: ACETAMINOPHEN 325 MG TABLET ONE (10:23)
[2022-12-30] MEDS ORDERED: LORAZEPAM 0.5 MG TABLET ONE (10:23)
--- NOTE | 2022-12-30 10:45 | NUR ---
Pt. to [facility] w/o incident. Tolerated despite claustrophobia.
--- NOTE | 2022-12-30 10:54 | NUR ---
Pt. taken for CT skan of Pelvis and abdomen.
--- NOTE | 2022-12-30 12:25 | NUR ---
Arterial Doppler pulses obtained by Dr. Aviles.
[2022-12-30] MEDS ORDERED: REMEDY ESSENTIAL ZINC PASTE 113 GM TP PRN (12:45)
[2022-12-30] MEDS ORDERED: ONDANSETRON 4 MG/2 ML VIAL IV PRN (12:45)
[2022-12-30] MEDS ORDERED: MAGNESIUM HYDROXIDE 30 ML LIQUID UDC PO PRN (12:45)
[2022-12-30] MEDS ORDERED: ACETAMINOPHEN 325 MG TABLET PO PRN (12:45)
--- NOTE | 2022-12-30 13:13 | NUR ---
Pt. belongings and admission declarations signed and witnessed.
--- NOTE | 2022-12-30 13:35 | NUR ---
Covid-19 test sent.
[2022-12-30] MEDS: HYDROCODONE/APAP 5-325MG TABLET PO PRN ×2 (15:48→20:27)
[2022-12-30] MEDS: ENOXAPARIN SODIUM 80 MG/0.8 ML DISP.SYRIN SQ SCH ×2 (15:50→22:21)
[2022-12-30 15:59] VITALS: BP 138/76
[2022-12-30 16:49] LABS: *BILIRUBIN,URIN NEGATIVE (NEGATIVE); *BLOOD, URINE NEGATIVE (NEGATIVE); *CLARITY,URINE CLEAR (CLEAR); *COLOR,URINE YELLOW (YELLOW); *KETONES,URINE NEGATIVE (NEGATIVE); *UROBILINOGEN,URINE 0.2 E.U./dl (NORMAL); LEUKOCYTE ESTERASE ,URINE NEGATIVE (NEGATIVE); NITRITE, URINE NEGATIVE (NEGATIVE); UGLUCOSE NEGATIVE (NEGATIVE)
--- NOTE | 2022-12-30 18:47 | NUR ---
PT alert and oriented x 4. Discussed plan of care with patient re: staying bed rest until further notice - to prevent any dislodge of dvt on RIGHT leg. Pt agreeable with plan of care. Skin intact. Tele SNR no ectopy. Pt denies any c/o pain. [place] given earlier effective current pain level 2/10. Right leg +1 edema warm to touch. Garry sign positive. Notified Hospitalist of elevated d-dimer. No new order received. Call light is within reach.
--- NOTE | 2022-12-30 19:19 | NUR ---
Reinforce to pt not to ambulate until further instructions and cleared by hospitalist. Witnessed pt ambulating to bathroom.
[2022-12-30 20:00] VITALS: BP 128/62
[2022-12-30] MEDS ORDERED: METOPROLOL SUCCINATE XL 50 MG TAB.SR.24H PO SCH (22:00)
[2022-12-30] MEDS: ATORVASTATIN 10 MG TABLET PO SCH (22:19)
[2022-12-31 00:08] VITALS: BP 129/71
[2022-12-31] MEDS: HYDROCODONE/APAP 5-325MG TABLET PO PRN ×4 (00:29→21:02)
--- NOTE | 2022-12-31 02:00 | NUR ---
During hourly rounds patient noted walking to the BR, encouraged to use urinal and explained risks and benefits.
[2022-12-31 04:07] VITALS: BP 135/78
[2022-12-31] MEDS: PANTOPRAZOLE SODIUM 40 MG TABLET.DR PO SCH (06:24)
[2022-12-31 06:54] LABS: HEMATOCRIT 40.9 % (36.7-47.1); MEAN CORPUSCULAR HEMOGLOBIN 30.3 uug (23.8-33.4); MEAN CORPUSCULAR VOLUME 89.7 fL (73.0-96.2); PLATELET COUNT (AUTO) 163 K/uL (152-348)
[2022-12-31 07:15] LABS: CREATININE 1.5 mg/dL (0.6-1.3); MAGNESIUM 1.9 mg/dL (1.8-2.4); PHOSPHOROUS 3.8 mg/dL (2.5-4.9); POTASSIUM 4.2 mmol/L (3.5-5.1)
[2022-12-31 07:21] LABS: THYROID STIMULATING HORMONE 1.576 mIU/mL (0.358-3.740)
--- NOTE | 2022-12-31 07:41 | NUR ---
RECEIVED PATIENT IN BED AWAKE ALERT AND ORIENTED DENIES PAIN OR DISCOMFORTS AT THIS TIME RIGHT LOWER LEG SWOLLEN ELEVATED ON THE PILLOW PATIENT INSTRUCTED TO USE URINAL MUCH POSSIBLE AND AVOID WALKING TO THE BATHROOM DUE TO DVT ON HIS RIGHT LEG EXPRESSED UNDERSTANDING.CALL LIGHT AND PERSONAL BELONGINGS ARE WITHIN EASY REACH MADE COMFORTABLE WILL CONTINUE TO OBSERVE.
[2022-12-31] MEDS: FENOFIBRATE NANOCRYSTALLIZED 145 MG TABLET PO SCH (08:18)
[2022-12-31] MEDS: ENOXAPARIN SODIUM 80 MG/0.8 ML DISP.SYRIN SQ SCH ×2 (08:19→20:25)
[2022-12-31] MEDS ORDERED: Medication Not On Formulary EA (Omeprazole 1 CAP) PO SCH (09:00)
[2022-12-31] MEDS ORDERED: FENOFIBRATE 160 MG PO SCH (09:00)
--- NOTE | 2022-12-31 09:39 | NUR ---
COMPLAINING OF PAIN RIGHT GROIN AND DOWN THE LEG MEDICATED WITH NORCO ORDERED WILL OBSERVE.
[2022-12-31 11:20] VITALS: BP 133/75
[2022-12-31] MEDS ORDERED: VERA120T20 PO (11:48)
[2022-12-31 16:35] VITALS: BP 147/82
--- NOTE | 2022-12-31 16:55 | NUR ---
MEDICATED FOR PAIN ORDERED AND HELPFUL WILL CONTINUE TO OBSERVE.
--- NOTE | 2022-12-31 19:30 | NUR ---
received patient lying in bed. AAOx4. In no apparent distress. Denies any SOB. Complain of pain on right LE 03/30. Patient was given [place] around 1655. NSR on tele with HR of 76/min. IV site on left hand intact and patent. Safety measure initiated and call light within reached.
[2022-12-31 20:00] VITALS: BP 134/75
[2022-12-31] MEDS: METOPROLOL SUCCINATE XL 50 MG TAB.SR.24H PO SCH (20:23)
[2022-12-31] MEDS: ATORVASTATIN 10 MG TABLET PO SCH (20:24)
[2022-12-31] MEDS ORDERED: VERAPAMIL 80 MG TABLET PO SCH (21:00)
[2022-12-31] MEDS ORDERED: VERAPAMIL SR 120 MG TABLET.SA PO SCH ×2 (21:00)
[2023-01-01] VITALS: BP 114/60
[2023-01-01 04:00] VITALS: BP 137/68
[2023-01-01] MEDS: HYDROCODONE/APAP 5-325MG TABLET PO PRN ×3 (04:21→14:35)
--- NOTE | 2023-01-01 05:32 | NUR ---
NSR on tele with Hr of 74/min. [place] 5/325mg PO every 4 hours PRN given for pain and effective. No complain of SOB. Needs attended to and met. Safety measure maintained and call light within reached.
[2023-01-01] MEDS: PANTOPRAZOLE SODIUM 40 MG TABLET.DR PO SCH (06:10)
[2023-01-01 07:29] LABS: HEMATOCRIT 40.8 % (36.7-47.1); MEAN CORPUSCULAR HEMOGLOBIN 30.8 uug (23.8-33.4); MEAN CORPUSCULAR VOLUME 89.1 fL (73.0-96.2); PLATELET COUNT (AUTO) 176 K/uL (152-348)
[2023-01-01 07:37] LABS: CREATININE 1.7 mg/dL (0.6-1.3); MAGNESIUM 1.7 mg/dL (1.8-2.4); PHOSPHOROUS 2.8 mg/dL (2.5-4.9); POTASSIUM 3.9 mmol/L (3.5-5.1)
--- NOTE | 2023-01-01 08:01 | NUR ---
PATIENT SEEN AND EXAMINED BY DR FUENTES WITH NEW ORDERS AND NOTED
[2023-01-01] MEDS: ENOXAPARIN SODIUM 80 MG/0.8 ML DISP.SYRIN SQ SCH (08:55)
[2023-01-01] MEDS: FENOFIBRATE NANOCRYSTALLIZED 145 MG TABLET PO SCH (08:57)
[2023-01-01] MEDS: METOPROLOL SUCCINATE XL 50 MG TAB.SR.24H PO SCH (08:57)
--- NOTE | 2023-01-01 09:40 | NUR ---
PATIENT TAKEN DOWN BY W/CHAIR FOR CT CHEST ORDERED.
[2023-01-01] MEDS ORDERED: MAGNESIUM OXIDE 400 MG TABLET PO ONE (09:45)
--- NOTE | 2023-01-01 09:47 | NUR ---
MAG LEVEL IS 1.7 WITH REPLACEMENT ORDERS AND NOTED
[2023-01-01 11:26] VITALS: BP 106/70
[2023-01-01] MEDS ORDERED: APIX5TAB PO (11:29)
[2023-01-01] MEDS ORDERED: APIX5TAB4 PO (11:29)
--- NOTE | 2023-01-01 12:00 | NUR ---
CALL RECEIVED FROM [facility] PHARMACIST WHO STATED THAT [employer] IS NOT COVERED UNDER PATIENTS INSURANCE STATED THAT THE ONE THAT IS COVERED IS [employer] SO I CALLED HARSHIL FLOREZ NP AND LEFT HIM A MESSAGE PATIENT AWARE.
--- NOTE | 2023-01-01 14:39 | NUR ---
ORDERS NOTED TO DISCHARGE PATIENT HOME TODAY PATIENT AWARE AND STATED THAT HIS COUSIN [facility] WILL PICK HIM UP. Addendum: 01/01/23 at 1441 by FEDERICO MOODY RN ERROR IN TIMING THIS ENTRY IS FOR 1131
--- NOTE | 2023-01-01 14:43 | NUR ---
STILL DID NOT HEAR FROM HARSHIL CORTES CHANGES FOR PATIENTS ANTICOAGULANT SO I CALLED AND SPOKE WITH HIM AND HE STATED THAT HE WILL MAKE THE CHANGES SOON POSSIBLE WITHIN 30 MINS PATIENT AWARE.
[2023-01-01] MEDS ORDERED: RIVA20TA PO (14:58)
[2023-01-01] MEDS ORDERED: RIVA10TA PO (14:58)
[2023-01-01 15:49] VITALS: BP 125/64
--- NOTE | 2023-01-01 16:05 | NUR ---
DISCHARGE MEDICATIONS PROCESS COMPLETED BY HARSHIL FLOREZ NP SO PATIENT DISCHARGED AT THIS TIME PICKED UP BY HIS NEPHEW IN SATISFACTORY CONDITION WITH DISCHARGE INSTRUCTIONS AND PATIENT INSTRUCTED TO LOCAL COMPANY [employer] DRIVER HIS MEDICATION FROM [facility] AND TO GO FOR HIS APPOINTMENT TOMORROW WITH DR SINGH AND TO FOLLOW UP WITH A TRUANT OFFICER WITHIN 7 DAYS AND HE EXPRESSED UNDERSTANDING.
[2023-01-02 08:06] LABS: *IMMUNOGLOBULIN G, SERUM 1063 mg/dL (603-1613); IMMUNOGLOBULIN M, SERUM 53 mg/dL (20-172)
[2023-01-02 14:06] LABS: A/G RATIO 0.9 (0.7-1.7); ALBUMIN 2.9 g/dL (2.9-4.4); ALPHA-1-GLOBULIN 0.3 g/dL (0.0-0.4); BETA GLOBULIN 1.1 g/dL (0.7-1.3); GLOBULIN, TOTAL 3.3 g/dL (2.2-3.9); M-SPIKE Not Observed g/dL (Not Observed)
[2023-01-03 01:06] LABS: CARBOHYDRATE ANTIGEN, 19-9 13 U/mL (0-35)
[2023-01-03 10:07] LABS: BETA-2-GLYCOPROTEIN IGG/M/A < 9 (0-25)
[2023-01-04 06:06] LABS: HEXAGONAL PHASE PHOSPHOLIPID 10 sec (0-11); LUPUS INTERPRETATION Comment: (.); PTT-LA 45.9 sec (0.0-43.5); PTT-LA MIX 42.4 sec (0.0-40.5); THROMBIN TIME 14.9 sec (0.0-23.0)
== END 2023-01-01 16:05 | disposition home health service (06) | DRG 301 ==
LOC: ER 09:18 → TELE3 13:23
PROVIDERS: ADMIT Registered Nurse; ATTEND Nurse Practitioner Acute Care
DX: I82.411 Acute embolism and thrombosis of right femoral vein (principal); I82.431 Acute embolism and thrombosis of right popliteal vein; E78.5 Hyperlipidemia, unspecified; Z87.891 Personal history of nicotine dependence; I12.9 Hypertensive chronic kidney disease with stage 1 through stage 4 chronic kidney disease, or unspecified chronic kidney disease; N18.9 Chronic kidney disease, unspecified; F32.A Depression, unspecified; F41.9 Anxiety disorder, unspecified; K21.9 Gastro-esophageal reflux disease without esophagitis; Z87.442 Personal history of urinary calculi; N40.0 Benign prostatic hyperplasia without lower urinary tract symptoms
CPT/HCPCS: 36415; 71045; 71250; 82378; 82784; 83735; 84100; 84153; 84155; 84165; 84443; 85025; 85305; 85610; 85613; 85730; 86301; 86334; 93005; G0378; J1650; J7040